=== PATIENT | female | born 1975 | race Two or more races ===

== ENCOUNTER 2023-11-23 11:00 | Day surgery (SDC) | payer OTHER ==
[2023-11-19 13:50] VITALS: BMI 32.0
[2023-11-23 12:30] VITALS: PULSE 71; RESP 18; TEMP 97.7
[2023-11-23 12:53] VITALS: BP 110/71
== END 2023-11-23 12:55 | disposition home or self-care (01) ==
LOC: FASU-ENDO 11:00
PROVIDERS: ATTEND Internal Medicine Gastroenterology
PROC: 0DBK8ZX Excision of Ascending Colon, Via Natural or Artificial Opening Endoscopic, Diagnostic (ICD-10-PCS; principal; 2023-11-23 11:47)
DX: Z12.11 Encounter for screening for malignant neoplasm of colon (principal); K63.5 Polyp of colon
CPT/HCPCS: 81025; 82962; 88305-TC